=== PATIENT | female | born 1985 | race Caucasian/White ===

== ENCOUNTER 2017-10-05 13:30 | Inpatient (IN) | payer OTHER ==
[~2017-10-05] VITALS: Ht 172.7 cm; Wt 3.2 kg
[~2017-10-05 13:30] MED LIST: PROVENTIL0.5 ML/2.5
[2017-10-22] MEDS ORDERED: OXYC1TAB9 PO (15:06)
[2017-10-22] MEDS ORDERED: PREPLUS CA-FE1 EACH PO (15:07)
== END 2017-10-22 16:32 | disposition home or self-care (01) | DRG 766 ==
LOC: OB/GYN 10-19 13:30 → LDR 10-19 17:49 → OB/GYN 10-19 17:49 → LDR 10-19 18:04 → O/R 10-19 20:00 → OB/GYN 10-19 21:39
PROVIDERS: Specialist
PROC: 4A1HXCZ Monitoring of Products of Conception, Cardiac Rate, External Approach (ICD-10-PCS; 2017-10-19)
PROC: 10D00Z1 Extraction of Products of Conception, Low, Open Approach (ICD-10-PCS; principal; 2017-10-19 17:00)
DX: O82 Encounter for cesarean delivery without indication (principal); Z37.0 Single live birth; Z3A.40 40 weeks gestation of pregnancy

== ENCOUNTER 2017-10-10 14:46 | Outpatient (CLI) | payer OTHER | END 2017-10-10 15:49 | disposition home or self-care (01) | LOC: NST 14:46 | DX: Z34.03 Encounter for supervision of normal first pregnancy, third trimester (principal); Z3A.38 38 weeks gestation of pregnancy ==

== ENCOUNTER 2017-10-17 14:00 | Outpatient (CLI) | payer OTHER | END 2017-10-17 16:04 | disposition home or self-care (01) | LOC: NST 14:00 | DX: Z34.03 Encounter for supervision of normal first pregnancy, third trimester (principal) ==